=== PATIENT | male | born 1955 | race Caucasian/White ===

== ENCOUNTER → 2020-11-28 | Day surgery (SDC) | payer OTHER ==
[~2020-11-28] MED LIST: ATROVENT HFA12.9 GM INH; BACLOFEN 20MG T20 MG PO; CELEXA20 MG PO; COZAAR50 MG PO; DULERA 200 MCG8.8 GM INH; FEXOFENADINE H180 MG PO; FOLIC ACID0.8 M1 PO; IBUPROFEN800 MG PO; LASIX40 MG PO; LIPITOR20 MG PO; LOMOTIL1 EACH PO; MEDROL 4MG DOSEP4 MG PO; MOTRIN600 MG PO; NEURONTIN300 MG PO; ONCE DAILY1 EACH PO; ONE-A-DAY MEN'1 EAC3 PO; PEPCID AC20 MG PO; POTASSIUM CHLO10 ME2 PO; PREDNISONE 10MG10 MG PO; PREDNISONE 20MG20 MG PO; PRILOSEC20 MG PO; THIAMINE HCL100 MG PO; TOPROL XL 50 MG50 MG PO; TRAMADOL HCL50 MG PO; TRAZODONE 100M100 MG PO; ULTRAM50 MG PO; UROCIT-K10 MEQ PO; VENTOLIN HFA IN18 GM INH; VIBRAMYCIN100 MG PO
== END | disposition home or self-care (01) ==
LOC: FAS 07:29
DX: R19.5 Other fecal abnormalities (principal); J44.9 Chronic obstructive pulmonary disease, unspecified; K21.9 Gastro-esophageal reflux disease without esophagitis; I10 Essential (primary) hypertension; F17.210 Nicotine dependence, cigarettes, uncomplicated; Z20.822 Contact with and (suspected) exposure to COVID-19; Z86.010 Personal history of colon polyps; Z79.899 Other long term (current) drug therapy; Z96.649 Presence of unspecified artificial hip joint
CPT/HCPCS: J0690; J1610; J2704

== ENCOUNTER 2021-09-14 07:19 | Inpatient (IN) | payer OTHER ==
[~2021-09-14] VITALS: Ht 167.6 cm; Wt 75.8 kg
[2021-09-14 08:10] LABS: BASOPHIL 0.3 % (0-2); EOSINOPHIL 2.3 % (0-7); HCT 34.8 % (42.0-52.0); HGB 11.8 g/dl (13.2-18.0); LYMPHOCYTE 13.1 % (15-48); MCH 32.2 pg (25.0-31.0); MCHC 33.9 g/dL (32.0-36.0); MCV 94.8 fL (78.0-100.0); MONOCYTE 11.3 % (0-12); NEUTROPHIL 72.6 % (41-80); NRBC 0; PLT 377 K/uL (150-400); RBC 3.67 M/uL (4.70-6.00); RDW 14.9 % (11.5-14.0)
[2021-09-14 08:15] LABS: INR 0.96 (0.9-1.2); PROTHROMBIN TIME 12.2 SECONDS (11.8-13.4); PTT 33.7 SECONDS (24.4-34.7)
[2021-09-14 08:16] LABS: D-DIMER 1.19 ug/mLFEU (0.00-0.41)
[2021-09-14 08:27] LABS: ALBUMIN 3.5 g/dL (3.4-5.0); BILIRUBIN - TOTAL 0.2 mg/dL (0.2-1.0); BUN/CREAT RATIO (CALC) 19.9 RATIO; CREATININE 1.46 mg/dL (0.67-1.17); GLOBULIN (CALCULATION) 3.2 g/dL; TOTAL PROTEIN 6.7 g/dL (6.4-8.2)
[2021-09-14 08:53] LABS: BILIRUBIN NEGATIVE (NEGATIVE); BLOOD NEGATIVE Ery/uL (NEGATIVE); CLARITY CLEAR (CLEAR); COLOR YELLOW (YELLOW); GLUCOSE (U) NORMAL (NORMAL); LEUKOCYTES NEGATIVE Leu/uL (NEGATIVE); NITRITE NEGATIVE (NEGATIVE); PROTEIN NEGATIVE (NEGATIVE); SPECIFIC GRAVITY 1.015 (1.001-1.030); UROBILINOGEN 0.2 mg/dL (0.2-1.0)
[2021-09-14 09:05] LABS: LACTIC ACID 1.1 mmol/L (0.4-1.9)
[2021-09-14] MEDS ORDERED: GABAPENTIN600 MG PO (17:30)
[2021-09-14] MEDS ORDERED: BACLOFEN 20MG T20 MG PO (17:30)
[2021-09-14] MEDS ORDERED: FOLIC ACID1 MG PO (17:31)
[2021-09-14] MEDS ORDERED: SYMBICORT 80-10.2 GM INH (17:33)
[2021-09-14] MEDS ORDERED: VENTOLIN (2.5 MG/3 M INH (17:33)
[2021-09-14] MEDS ORDERED: VENTOLIN HFA IN18 GM INH (17:33)
[2021-09-15 06:52] LABS: BASOPHIL 0.8 % (0-2); EOSINOPHIL 5.6 % (0-7); HCT 33.8 % (42.0-52.0); HGB 11.2 g/dl (13.2-18.0); LYMPHOCYTE 22.5 % (15-48); MCH 32.1 pg (25.0-31.0); MCHC 33.1 g/dL (32.0-36.0); MCV 96.8 fL (78.0-100.0); MONOCYTE 13.3 % (0-12); MPV 9.8 fL (6.0-9.5); NEUTROPHIL 57.4 % (41-80); NRBC 0; PLT 348 K/uL (150-400); RBC 3.49 M/uL (4.70-6.00); WBC 7.3 K/uL (4.0-10.5)
[2021-09-15 07:13] LABS: BUN/CREAT RATIO (CALC) 13.3 RATIO; CREATININE 0.9 mg/dL (0.67-1.17); MAGNESIUM 1.6 mg/dL (1.8-2.4); POTASSIUM 4.1 mmol/L (3.5-5.1)
[2021-09-17 06:41] LABS: BASOPHIL 1.2 % (0-2); EOSINOPHIL 5.7 % (0-7); HCT 36.2 % (42.0-52.0); HGB 12.2 g/dl (13.2-18.0); MCH 31.7 pg (25.0-31.0); MCHC 33.7 g/dL (32.0-36.0); MONOCYTE 12.1 % (0-12); NEUTROPHIL 48.8 % (41-80); NRBC 0; PLT 381 K/uL (150-400); RBC 3.85 M/uL (4.70-6.00); RDW 14.3 % (11.5-14.0)
[2021-09-17 06:44] LABS: BUN/CREAT RATIO (CALC) 7.6 RATIO; CREATININE 0.92 mg/dL (0.67-1.17); MAGNESIUM 1.3 mg/dL (1.8-2.4); POTASSIUM 3.3 mmol/L (3.5-5.1)
[2021-09-17] MEDS ORDERED: PROTONIX 40MG T40 MG PO (12:32)
[2021-09-17] MEDS ORDERED: CARAFATE1 GM PO (12:32)
[2021-09-17] MEDS ORDERED: PERCOCET 5-3251 EACH PO (12:32)
[2021-09-17] MEDS ORDERED: MAG-OXIDE 400M400 MG PO (14:43)
== END 2021-09-17 14:00 | disposition home or self-care (01) | DRG 384 ==
LOC: FER 07:19 → FMS 14:38 → FOFB 14:38 → FMS 14:39
PROVIDERS: Emergency Medicine; Student in an Organized Health Care Education/Training Program; ADMIT Internal Medicine
DX: K25.9 Gastric ulcer, unspecified as acute or chronic, without hemorrhage or perforation (principal); N17.9 Acute kidney failure, unspecified; J44.9 Chronic obstructive pulmonary disease, unspecified; Z20.822 Contact with and (suspected) exposure to COVID-19; I10 Essential (primary) hypertension; M19.90 Unspecified osteoarthritis, unspecified site; M51.36 Other intervertebral disc degeneration, lumbar region; E78.5 Hyperlipidemia, unspecified; K21.9 Gastro-esophageal reflux disease without esophagitis; F17.210 Nicotine dependence, cigarettes, uncomplicated; Z96.642 Presence of left artificial hip joint; G89.29 Other chronic pain; Z86.74 Personal history of sudden cardiac arrest; Z90.49 Acquired absence of other specified parts of digestive tract; Z88.8 Allergy status to other drugs, medicaments and biological substances; Z71.6 Tobacco abuse counseling
CPT/HCPCS: 36415; 71046; 71275; 80048; 80053; 81003; 83605; 83690; 83735; 84145; 84484; 85025; 85379; 85610; 85730; 86677; 93005; 94640; C9113; J1170; J2060; J2405; J7030; J7120; Q9967; U0002

== ENCOUNTER 2022-03-19 09:45 | Inpatient (IN) | payer OTHER ==
[~2022-03-19] VITALS: Ht 167.6 cm; Wt 76.5 kg
[~2022-03-19 09:45] MED LIST changes: +CARAFATE1 GM PO; +FOLIC ACID1 MG PO; +GABAPENTIN600 MG PO; +MAG-OXIDE 400M400 MG PO; +PERCOCET 5-3251 EACH PO; +PROTONIX 40MG T40 MG PO; +SYMBICORT 80-10.2 GM INH; +VENTOLIN (2.5 MG/3 M INH
[2022-03-19 11:25] LABS: INR 0.9 (0.9-1.2); PROTHROMBIN TIME 11.9 SECONDS (11.9-13.9); PTT 29.1 SECONDS (24.9-34.6)
[2022-03-19 11:43] LABS: BASOPHIL 0.8 % (0-2); EOSINOPHIL 0.5 % (0-7); HCT 41.6 % (42.0-52.0); HGB 14.3 g/dl (13.2-18.0); LYMPHOCYTE 20.4 % (15-48); MCH 31.2 pg (25.0-31.0); MCHC 34.4 g/dL (32.0-36.0); MCV 90.8 fL (78.0-100.0); MONOCYTE 11.1 % (0-12); MPV 10.3 fL (6.0-9.5); NEUTROPHIL 66.6 % (41-80); NRBC 0; PLT 349 K/uL (150-400); RBC 4.58 M/uL (4.70-6.00); WBC 10.6 K/uL (4.0-10.5)
[2022-03-19 11:57] LABS: LACTIC ACID 4.6 mmol/L (0.4-1.9)
[2022-03-19 12:29] LABS: BILIRUBIN - TOTAL 0.8 mg/dL (0.2-1.0); BUN/CREAT RATIO (CALC) 27.2 RATIO; CREATININE 1.14 mg/dL (0.67-1.17); GLOBULIN (CALCULATION) 3.6 g/dL; MAGNESIUM 1.6 mg/dL (1.8-2.4); POTASSIUM 4.1 mmol/L (3.5-5.1); TOTAL PROTEIN 7.6 g/dL (6.4-8.2)
[2022-03-19 14:21] LABS: BILIRUBIN NEGATIVE (NEGATIVE); BLOOD 1+ Ery/uL (NEGATIVE); CLARITY CLEAR (CLEAR); COLOR YELLOW (YELLOW); GLUCOSE (U) NORMAL (NORMAL); LEUKOCYTES NEGATIVE Leu/uL (NEGATIVE); NITRITE NEGATIVE (NEGATIVE); PROTEIN TRACE (LOW) mg/dL (NEGATIVE); SPECIFIC GRAVITY 1.015 (1.001-1.030); UROBILINOGEN 0.2 mg/dL (0.2-1.0)
[2022-03-19 14:24] LABS: AMPHETAMINES NEGATIVE (NEGATIVE); BARBITURATES NEGATIVE (NEGATIVE); ECSTASY (MDMA) NEGATIVE (NEGATIVE); MARIJUANA (THC) POSITIVE (NEGATIVE); METHADONE NEGATIVE (NEGATIVE); OPIATES NEGATIVE (NEGATIVE); OXYCODONE NEGATIVE (NEGATIVE)
[2022-03-19 14:28] LABS: SQUAMOUS EPITHELIAL CELLS RARE; URINARY RBC RARE
--- NOTE | 2022-03-19 16:50 | NUR ---
PT REPORTED BLOOD INS TOOL NOTIFIED AND ORDERED OCCULT STOOL DC LOVENOX AND ADD SCD'S
[2022-03-19] MEDS ORDERED: BUSPAR5 MG PO (21:12)
[2022-03-19] MEDS ORDERED: ACETAMINOPHEN500 M1 PO (21:12)
[2022-03-19] MEDS ORDERED: PRILOSEC20 MG PO (21:13)
[2022-03-20 06:33] LABS: HCT 35.3 % (42.0-52.0); HGB 11.9 g/dl (13.2-18.0); MCH 31.1 pg (25.0-31.0); MCHC 33.7 g/dL (32.0-36.0); MCV 92.2 fL (78.0-100.0); MPV 9.7 fL (6.0-9.5); RBC 3.83 M/uL (4.70-6.00); RDW 16.7 % (11.5-14.0); WBC 6.6 K/uL (4.0-10.5)
[2022-03-20 06:50] LABS: INR 0.98 (0.9-1.2); PROTHROMBIN TIME 12.7 SECONDS (11.9-13.9)
[2022-03-20 07:10] LABS: ALBUMIN 3.4 g/dL (3.4-5.0); BILIRUBIN - DIRECT 0.2 mg/dL (0.00-0.20); BUN/CREAT RATIO (CALC) 20.9 RATIO; CREATININE 0.91 mg/dL (0.67-1.17); GLOBULIN (CALCULATION) 3.3 g/dL; POTASSIUM 3.6 mmol/L (3.5-5.1); TOTAL PROTEIN 6.7 g/dL (6.4-8.2)
--- NOTE | 2022-03-20 15:13 | NUR ---
03/20/22 Mr. Helton and his GF, Melanie Dominguez, share a home together. He is supported by and reports to be able to meet his financial obligations. Mr. Helton reports to drink a pint 1/2 pint of vodka per day. However, he drank a fifth of vodka several days prior to admission. Mr. Helton reports to have maintained his sobriety from May 2021 until October 2021. He has had an admission to [facility] and attended AA meetings in the past. Mr. Helton wishes to gain his sobriety. He plans to return to AA meetings. He does not have a sponsor. Recommendations were made for Mr. Helton to seek out a sponsor.
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
[2022-03-21 06:14] LABS: HCT 36.8 % (42.0-52.0); HGB 12.4 g/dl (13.2-18.0); MCHC 33.7 g/dL (32.0-36.0); MPV 10.1 fL (6.0-9.5); RDW 16.1 % (11.5-14.0); WBC 5.2 K/uL (4.0-10.5)
[2022-03-21 07:15] LABS: IRON % SATURATION 22.8 %SAT (20-50)
[2022-03-21 07:41] LABS: BUN/CREAT RATIO (CALC) 11.4 RATIO; CREATININE 0.79 mg/dL (0.67-1.17); POTASSIUM 3.1 mmol/L (3.5-5.1)
[2022-03-21 08:10] LABS: HBSAG SCREEN Negative (Negative); HCV AB <0.1 (0.0-0.9); HEP A AB, IGM Negative (Negative); HEP B CORE AB, IGM Negative (Negative)
[2022-03-22] MEDS ORDERED: DUONEB 2.5-0.5M1 AMP INH (03:14)
[2022-03-22 06:54] LABS: HCT 35.6 % (42.0-52.0); MCH 31.3 pg (25.0-31.0); MCHC 33.7 g/dL (32.0-36.0); MCV 92.7 fL (78.0-100.0); RBC 3.84 M/uL (4.70-6.00)
[2022-03-22 07:15] LABS: CREATININE 0.92 mg/dL (0.67-1.17); POTASSIUM 3.1 mmol/L (3.5-5.1)
--- NOTE | 2022-03-22 09:56 | NUR ---
PT BEEN RESTING THIS AM WITH NO DISRUPTIVE BEHAVIOR. AFSHIN D/C AT THIS TIME
[2022-03-23 05:54] LABS: MCH 31.1 pg (25.0-31.0); MCHC 33.3 g/dL (32.0-36.0); MCV 93.3 fL (78.0-100.0); RBC 4.18 M/uL (4.70-6.00); RDW 16.2 % (11.5-14.0); WBC 6.2 K/uL (4.0-10.5)
[2022-03-23 06:07] LABS: BUN/CREAT RATIO (CALC) 19.6 RATIO; CREATININE 0.97 mg/dL (0.67-1.17); POTASSIUM 3.7 mmol/L (3.5-5.1)
[2022-03-23] MEDS ORDERED: LIBRIUM25 MG PO (12:29)
== END 2022-03-23 16:12 | disposition home or self-care (01) | DRG 377 ==
LOC: FER 09:45 → FTCU 14:16
PROVIDERS: Emergency Medicine; Student in an Organized Health Care Education/Training Program; ADMIT Family Medicine
PROC: HZ2ZZZZ Detoxification Services for Substance Abuse Treatment (ICD-10-PCS; principal; 2022-03-19)
PROC: 0DB78ZX Excision of Stomach, Pylorus, Via Natural or Artificial Opening Endoscopic, Diagnostic (ICD-10-PCS; 2022-03-21)
PROC: 0DB98ZX Excision of Duodenum, Via Natural or Artificial Opening Endoscopic, Diagnostic (ICD-10-PCS; 2022-03-21 11:30)
DX: K29.21 Alcoholic gastritis with bleeding (principal); R65.11 Systemic inflammatory response syndrome (SIRS) of non-infectious origin with acute organ dysfunction; F10.139 Alcohol abuse with withdrawal, unspecified; D62 Acute posthemorrhagic anemia; E87.2 Acidosis; N17.9 Acute kidney failure, unspecified; E87.1 Hypo-osmolality and hyponatremia; K29.81 Duodenitis with bleeding; Z20.822 Contact with and (suspected) exposure to COVID-19; M25.552 Pain in left hip; F10.129 Alcohol abuse with intoxication, unspecified; E86.0 Dehydration; R79.89 Other specified abnormal findings of blood chemistry; K70.10 Alcoholic hepatitis without ascites; I10 Essential (primary) hypertension; J44.9 Chronic obstructive pulmonary disease, unspecified; E78.5 Hyperlipidemia, unspecified; Z88.8 Allergy status to other drugs, medicaments and biological substances; Z79.899 Other long term (current) drug therapy; Z82.49 Family history of ischemic heart disease and other diseases of the circulatory system
CPT/HCPCS: 36415; 36600; 70450; 71045; 73501; 80048; 80053; 80074; 80076; 80305; 81001; 82140; 82550; 82607; 82803; 83540; 83550; 83605; 83690; 83735; 83880; 84145; 84484; 85025; 85610; 85730; 88305; 93005; 94010; 94640; 94664; 94760; 94762; 97162; 97165; C9113; G0480; J1650; J2060; J2543; J2704; J3360; J3370; J3411; J3475; J7050; J7120; J7121; U0002